=== PATIENT | male | born 1960 | race African-American/Black ===

== ENCOUNTER 2017-03-03 20:30 | Outpatient (CLI) | payer BC | END 2017-03-03 20:31 | disposition home or self-care (01) | LOC: SLEEPLAB 20:30 | PROVIDERS: ATTEND Specialist | DX: G47.33 Obstructive sleep apnea (adult) (pediatric) (principal); E66.9 Obesity, unspecified; R06.83 Snoring; R53.83 Other fatigue | CPT/HCPCS: 95811 ==